=== PATIENT | male | born 1960 | race Caucasian/White ===

== ENCOUNTER 2017-05-26 10:21 | Inpatient (IN) | payer BC ==
[2017-05-26] MEDS ORDERED: SODIUM CHLORIDE 0.9% 500 ML IV STA (11:00)
[2017-05-26] MEDS ORDERED: HEPARIN SODIUM,PORCINE/D5W PMX 25,000 UNIT in DEXTROSE/WATER 1 500ML.BAG IV SCH (11:00)
[2017-05-26] MEDS ORDERED: DILTIAZEM 125 MG in SODIUM CHLORIDE 0.9% 100 ML IV ONE (11:00)
[2017-05-26] MEDS ORDERED: HEPARIN SODIUM,PORCINE 5,000 UNIT/ML 1 ML VIAL IV ONE (11:00)
--- NOTE | 2017-05-26 11:03 | ED ---
General Adult HPI - General Chief complaint: Arrhythmia/Palpitations Stated complaint: heart racing Time Seen by Provider: 05/26/17 10:21 Source: patient, RN notes reviewed Mode of arrival: wheelchair Limitations: no limitations - History of Present Illness Initial comments: This is a 57-year-old male who states he hasn't seen a doctor and docusate does not have any medical history that he knows of. Patient states this morning he woke up felt extremely jittery felt as though his heart was racing and he has had that feeling ever since. Patient arrives in his heart rate is over 150 beats a minute. Patient states she's never had anything similar. Patient denies any illegal drug use. Patient denies any caffeine use today. Patient denies any recent fever chills or cough. Patient denies being short of breath. Patient states there is some heaviness on his chest. Patient denies any radiation of that heaviness however. Patient denies any abdominal pain patient denies nausea vomiting diarrhea. Patient denies taking any prescription medications at this time. Patient denies any syncopal near syncopal or dizziness episodes. - Related Data Home Medications Medication Instructions Recorded Confirmed No Known Home Medications [No 05/26/17 05/26/17 Known Home Medications] Allergies Allergy/AdvReac Type Severity Reaction Status Date / Time No Known Allergies Allergy Verified 05/26/17 11:11 Review of Systems ROS Statement: Those systems with pertinent positive or pertinent negative responses have been documented in the HPI. ROS Other: All systems not noted in ROS Statement are negative. Past Medical History Past Medical History: No Reported History History of Any Multi-Drug Resistant Organisms: None Reported Past Surgical History: Tonsillectomy Past Psychological History: No Psychological Hx Reported Smoking Status: Never smoker Past Alcohol Use History: Daily Past Drug Use History: None Reported General Exam - General Exam Comments Initial Comments: GENERAL: Patient is well-developed and well-nourished. Patient is nontoxic and well- hydrated and is in mild distress. ENT: Neck is soft and supple. No significant lymphadenopathy is noted. Oropharynx is clear. Moist mucous membranes. Neck has full range of motion without eliciting any pain. EYES: The sclera were anicteric and conjunctiva were pink and moist. Extraocular movements were intact and pupils were equal round and reactive to light. Eyelids were unremarkable. PULMONARY: Unlabored respirations. Good breath sounds bilaterally. No audible rales rhonchi or wheezing was noted. CARDIOVASCULAR: Patient is a heart rates about 150 beats a minute ABDOMEN: Soft and nontender with normal bowel sounds. No palpable organomegaly was noted. There is no palpable pulsatile mass. SKIN: Skin is clear with no lesions or rashes and otherwise unremarkable. NEUROLOGIC: Patient is alert and oriented x3. Cranial nerves II through XII are grossly intact. Motor and sensory are also intact. Normal speech, volume and content. Symmetrical smile. MUSCULOSKELETAL: Normal extremities with adequate strength and full range of motion. LYMPHATICS: No significant lymphadenopathy is noted PSYCHIATRIC: Normal psychiatric evaluation. Normal interpersonal interactions appears functionally intact in deals appropriately with others. No signs of depression. No signs of anxiety. Limitations: no limitations Course Vital Signs 05/26/17 05/26/17 05/26/17 10:23 10:33 11:31 Temperature 98.2 F Pulse Rate 108 H 156 H 146 H Respiratory 20 20 18 Rate Blood Pressure 154/96 159/116 150/92 O2 Sat by Pulse 97 96 63 L Oximetry Medical Decision Making - Medical Decision Making EKG shows atrial flutter with a 2-1 block at a rate of 154 bpm QRS is 68 QT interval 306 QTC is 490. No ST segment elevation is noted Chest x-ray shows no acute abnormality. Patient was placed on a Cardizem drip after 5 mg boluses heart rate was slowly coming down throughout his ED stay. I spoke with Dr. Mcdaniel he agreed to admit the patient admitted the patient I placed the patient on heparin I continue the heparin the Cardizem drip on the floor I consult to cardiology. - Lab Data Result diagrams: 05/26/17 10:38 05/26/17 10:38 Lab Results 05/26/17 05/26/17 05/26/17 Range/Units 10:38 10:38 10:38 WBC 11.0 H (3.8-10.6) k/uL RBC 6.01 H (4.30-5.90) m/uL Hgb 18.1 H (13.0-17.5) gm/dL Hct 51.2 (39.0-53.0) % MCV 85.2 (80.0-100.0) fL MCH 30.1 (25.0-35.0) pg MCHC 35.3 (31.0-37.0) g/dL RDW 12.5 (11.5-15.5) % Plt Count 311 (150-450) k/uL Neutrophils % 81 % Lymphocytes % 11 % Monocytes % 5 % Eosinophils % 1 % Basophils % 1 % Neutrophils # 8.9 H (1.3-7.7) k/uL Lymphocytes # 1.3 (1.0-4.8) k/uL Monocytes # 0.5 (0-1.0) k/uL Eosinophils # 0.1 (0-0.7) k/uL Basophils # 0.1 (0-0.2) k/uL PT (9.0-12.0) sec INR (<1.1) APTT (22.0-30.0) sec Sodium 141 (137-145) mmol/L Potassium 4.3 (3.5-5.1) mmol/L Chloride 106 (98-107) mmol/L Carbon Dioxide 22 (22-30) mmol/L Anion Gap 13 mmol/L BUN 13 (9-20) mg/dL Creatinine 0.88 (0.66-1.25) mg/dL Est GFR (MDRD) Af Amer >60 (>60 ml/min/1.73 sqM) Est GFR (MDRD) Non-Af >60 (>60 ml/min/1.73 sqM) Glucose 118 H (74-99) mg/dL Calcium 9.7 (8.4-10.2) mg/dL Magnesium 1.9 (1.6-2.3) mg/dL Total Bilirubin 1.0 (0.2-1.3) mg/dL AST 35 (17-59) U/L ALT 46 (21-72) U/L Alkaline Phosphatase 82 (38-126) U/L Total Creatine Kinase 230 H (55-170) U/L CK-MB (CK-2) 2.6 H* (0.0-2.4) ng/mL CK-MB (CK-2) Rel Index 1.1 Troponin I <0.012 (0.000-0.034) ng/mL Total Protein 7.7 (6.3-8.2) g/dL Albumin 4.7 (3.5-5.0) g/dL TSH 0.837 (0.465-4.680) mIU/L Free T4 1.29 (0.78-2.19) ng/dL Urine Opiates Screen (NotDetected) Ur Oxycodone Screen (NotDetected) Urine Methadone Screen (NotDetected) Ur Propoxyphene Screen (NotDetected) Ur Barbiturates Screen (NotDetected) U Tricyclic Antidepress (NotDetected) Ur Phencyclidine Scrn (NotDetected) Ur Amphetamines Screen (NotDetected) U Methamphetamines Scrn (NotDetected) U Benzodiazepines Scrn (NotDetected) Urine Cocaine Screen (NotDetected) U Marijuana (THC) Screen (NotDetected) 05/26/17 05/26/17 Range/Units 10:38 11:40 WBC (3.8-10.6) k/uL RBC (4.30-5.90) m/uL Hgb (13.0-17.5) gm/dL Hct (39.0-53.0) % MCV (80.0-100.0) fL MCH (25.0-35.0) pg MCHC (31.0-37.0) g/dL RDW (11.5-15.5) % Plt Count (150-450) k/uL Neutrophils % % Lymphocytes % % Monocytes % % Eosinophils % % Basophils % % Neutrophils # (1.3-7.7) k/uL Lymphocytes # (1.0-4.8) k/uL Monocytes # (0-1.0) k/uL Eosinophils # (0-0.7) k/uL Basophils # (0-0.2) k/uL PT 10.7 (9.0-12.0) sec INR 1.1 (<1.1) APTT 24.2 (22.0-30.0) sec Sodium (137-145) mmol/L Potassium (3.5-5.1) mmol/L Chloride (98-107) mmol/L Carbon Dioxide (22-30) mmol/L Anion Gap mmol/L BUN (9-20) mg/dL Creatinine (0.66-1.25) mg/dL Est GFR (MDRD) Af Amer (>60 ml/min/1.73 sqM) Est GFR (MDRD) Non-Af (>60 ml/min/1.73 sqM) Glucose (74-99) mg/dL Calcium (8.4-10.2) mg/dL Magnesium (1.6-2.3) mg/dL Total Bilirubin (0.2-1.3) mg/dL AST (17-59) U/L ALT (21-72) U/L Alkaline Phosphatase (38-126) U/L Total Creatine Kinase (55-170) U/L CK-MB (CK-2) (0.0-2.4) ng/mL CK-MB (CK-2) Rel Index Troponin I (0.000-0.034) ng/mL Total Protein (6.3-8.2) g/dL Albumin (3.5-5.0) g/dL TSH (0.465-4.680) mIU/L Free T4 (0.78-2.19) ng/dL Urine Opiates Screen Not Detected (NotDetected) Ur Oxycodone Screen Not Detected (NotDetected) Urine Methadone Screen Not Detected (NotDetected) Ur Propoxyphene Screen Not Detected (NotDetected) Ur Barbiturates Screen Not Detected (NotDetected) U Tricyclic Antidepress Not Detected (NotDetected) Ur Phencyclidine Scrn Not Detected (NotDetected) Ur Amphetamines Screen Not Detected (NotDetected) U Methamphetamines Scrn Not Detected (NotDetected) U Benzodiazepines Scrn Not Detected (NotDetected) Urine Cocaine Screen Not Detected (NotDetected) U Marijuana (THC) Screen Not Detected (NotDetected) Critical Care Time Critical Care Time: Yes Total Critical Care Time: 35 Disposition Clinical Impression: Atrial fibrillation with rapid ventricular response, New onset a-fib Disposition: ADMITTED IP TO THIS HOSP Referrals: None,Stated [Primary Care Provider] - 1-2 days Time of Disposition: 12:36
[2017-05-26 11:18] LABS: Basophils # (A) 0.1 k/uL (0-0.2); Basophils % (A) 1 %; CH 29.6; CHCM 34.9; Eosinophils # (A) 0.1 k/uL (0-0.7); Eosinophils % (A) 1 %; HCT 51.2 % (39.0-53.0); HGB 18.1 gm/dL (13.0-17.5); Luc # (Auto) 0.14; Luc % (Auto) 1; Lymphocytes # (A) 1.3 k/uL (1.0-4.8); Lymphocytes % (A) 11 %; MCH 30.1 pg (25.0-35.0); MCHC 35.3 g/dL (31.0-37.0); MCV 85.2 fL (80.0-100.0); Mean Platelet Volume 6.7; Monocytes # (A) 0.5 k/uL (0-1.0); Monocytes % (A) 5 %; Neutrophils # (A) 8.9 k/uL (1.3-7.7); Neutrophils % (A) 81 %; RBC 6.01 m/uL (4.30-5.90); RDW 12.5 % (11.5-15.5); WBC (Perox) 11.62
--- NOTE | 2017-05-26 11:26 | XR ---
EXAMINATION TYPE: XR chest 2V DATE OF EXAM: 05/26/2017 COMPARISON: NONE HISTORY: Shortness of breath TECHNIQUE: Frontal and lateral views of the chest are obtained. FINDINGS: Scattered senescent parenchymal changes noted. Hyperinflation compatible with COPD. No evidence for infiltrate. No evidence for atelectasis. Heart size is stable. Mediastinal structures are stable and grossly unremarkable. No evidence for hilar prominence. Degenerative changes dorsal spine. IMPRESSION: 1. No evidence for acute pulmonary disease.
[2017-05-26 11:29] LABS: ALT 46 U/L (21-72); AST 35 U/L (17-59); Alkaline Phosphatase 82 U/L (38-126); Anion Gap 13 mmol/L; Blood Urea Nitrogen 13 mg/dL (9-20); Calcium 9.7 mg/dL (8.4-10.2); Carbon Dioxide 22 mmol/L (22-30); Chloride 106 mmol/L (98-107); Glucose 118 mg/dL (74-99); Magnesium 1.9 mg/dL (1.6-2.3); Non-African American GFR(MDRD) >60 (>60 ml/min/1.73 sqM); Sodium 141 mmol/L (137-145); Total Protein 7.7 g/dL (6.3-8.2)
[2017-05-26 11:44] LABS: Creatine Kinase 230 U/L (55-170)
[2017-05-26 11:56] LABS: INR 1.1 (<1.1); Partial Thromboplastin Time 24.2 sec (22.0-30.0); Prothrombin Time 10.7 sec (9.0-12.0); Troponin I <0.012 ng/mL (0.000-0.034)
[2017-05-26 12:04] LABS: Creatine Kinase MB 2.6 ng/mL (0.0-2.4)
[2017-05-26 12:06] LABS: Potassium 4.3 mmol/L (3.5-5.1)
[2017-05-26] MEDS ORDERED: NITROGLYCERIN SL TABS 0.4 MG TAB SUBLINGUAL PRN (12:37)
[2017-05-26] MEDS ORDERED: PROPAFENONE 150 MG TAB PO STA ×2 (15:35→15:37)
--- NOTE | 2017-05-26 15:45 | P.CRDCN ---
History of Present Illness Reason for Consult (text): Palpitations and rapid heartbeat History of present illness: This patient's medical records reviewed. Woke up this morning with the complaint of palpitations and racing of the heart beat felt very jittery patient denies any shortness of breath chest pain and denies any history of for drinking any A lot of caffeinated drinks has not taken any [id number] medications. And has a borderline hypertension as any history of angina or diabetes. Denies any history of a heart murmur Past Medical History Past Medical History: No Reported History Additional Past Medical History / Comment(s): Pt does not go to doctors very often. Seasonal allergies, sinus infections. History of Any Multi-Drug Resistant Organisms: None Reported Past Surgical History: Tonsillectomy Past Anesthesia/Blood Transfusion Reactions: No Reported Reaction Past Psychological History: No Psychological Hx Reported Additional Psychological History / Comment(s): Pt resides with his spouse and child. He is independent. Smoking Status: Never smoker Past Alcohol Use History: Daily Additional Past Alcohol Use History / Comment(s): Pt states he drinks 1-2 beers nearly daily and 3-4 beers on a Monday Past Drug Use History: None Reported - Past Family History Father Family Medical History: Cancer Additional Family Medical History / Comment(s): Father of lung cancer at the age of 71 yrs. He was a smoker. Mother Family Medical History: Unable to Obtain Additional Family Medical History / Comment(s): Pt states his mother does not discuss her health. She is 77yrs old. Medications and Allergies Home Medications Medication Instructions Recorded Confirmed Type No Known Home Medications [No 05/26/17 05/26/17 History Known Home Medications] Allergies Allergy/AdvReac Type Severity Reaction Status Date / Time No Known Allergies Allergy Verified 05/26/17 11:11 Physical Exam Vitals: Vital Signs Temp Pulse Pulse Resp BP BP Pulse Ox 05/26/17 14:10 96.8 F L 88 16 143/80 97 05/26/17 13:39 99 F 120 H 18 131/89 05/26/17 13:12 119 H 18 120/92 95 05/26/17 11:31 146 H 18 150/92 96 05/26/17 10:33 156 H 20 159/116 96 05/26/17 10:23 98.2 F 108 H 20 154/96 97 Intake and Output 05/26/17 05/26/17 05/26/17 06:59 14:59 22:59 Intake Total 500 Balance 500 Intake: Amount of Fluid Infused ( 500 ml) Other: Weight 111.13 kg Patient Weight 05/27/17 06:59 Weight 111.13 kg Patient is comfortable and in no acute distress. Vital signs are reviewed Head ENT. Negative Neck is supple. There is no increase in jugular venous pressure. Both the carotid pulses are felt that is no bruit. Chest. Symmetrical Heart. First and second heart sounds are normal there is no evidence of murmur Lungs clinically clear to auscultation and percussion. Abdomen is soft liver and spleen are not enlarged. Extremities peripheral pulses since are 2+. EKG is suggestive for atrial flutter with a rapid ventricular response. Chest x-ray is normal Electrolyte T4 and TSH and initial troponins are normal Results 05/26/17 10:38 05/26/17 10:38 Cardiac Enzymes 05/26/17 05/26/17 Range/Units 10:38 10:38 AST 35 (17-59) U/L CK-MB (CK-2) 2.6 H* (0.0-2.4) ng/mL Troponin I <0.012 (0.000-0.034) ng/mL Coagulation 05/26/17 Range/Units 10:38 PT 10.7 (9.0-12.0) sec APTT 24.2 (22.0-30.0) sec CBC 05/26/17 Range/Units 10:38 WBC 11.0 H (3.8-10.6) k/uL RBC 6.01 H (4.30-5.90) m/uL Hgb 18.1 H (13.0-17.5) gm/dL Hct 51.2 (39.0-53.0) % Plt Count 311 (150-450) k/uL Comprehensive Metabolic Panel 05/26/17 Range/Units 10:38 Sodium 141 (137-145) mmol/L Potassium 4.3 (3.5-5.1) mmol/L Chloride 106 (98-107) mmol/L Carbon Dioxide 22 (22-30) mmol/L BUN 13 (9-20) mg/dL Creatinine 0.88 (0.66-1.25) mg/dL Glucose 118 H (74-99) mg/dL Calcium 9.7 (8.4-10.2) mg/dL AST 35 (17-59) U/L ALT 46 (21-72) U/L Alkaline Phosphatase 82 (38-126) U/L Total Protein 7.7 (6.3-8.2) g/dL Albumin 4.7 (3.5-5.0) g/dL Current Medications Generic Name Dose Route Start Last Admin Trade Name Negrito PRN Reason Stop Dose Admin Aspirin 325 mg 05/27/17 09:00 Aspirin PO DAILY KOMAL Diltiazem HCl 125 mg/ Sodium 125 mls @ 5 mls/hr 05/26/17 11:00 05/26/17 11:27 Chloride IV 05/27/17 10:59 5 mg/hr .Q24H ONE 5 mls/hr 5 MG/HR Administration Heparin Sodium/Dextrose 25,000 500 mls @ 20 mls/hr 05/26/17 11:00 05/26/17 11 :23 unit/ IV Solution IV 9 units/kg/hr .Q24H KOMAL 20 mls/hr Protocol Administration 9 UNITS/KG/HR Nitroglycerin 0.4 mg 05/26/17 12:37 Nitrostat SUBLINGUAL Q5M PRN Chest Pain Propafenone HCl 600 mg 05/26/17 15:37 Rythmol PO 05/26/17 15:38 ONCE STA Intake and Output 05/26/17 05/26/17 05/26/17 06:59 14:59 22:59 Intake Total 500 Balance 500 Intake: Amount of Fluid Infused ( 500 ml) Other: Weight 111.13 kg Patient Weight 05/27/17 06:59 Weight 111.13 kg 05/26/17 10:38 05/26/17 10:38 EKG Interpretations (text) Social atrial flutter with a rapid ventricular rate Assessment and Plan Plan: This patient is admitted with the atrial flutter rapid ventricular rate. And then Cardizem drip as well as a heparin we'll do echo and Doppler study. Redo one dose of Rythmol 600 mg by mouth to pharmacologically convert him to the normal sinus rhythm
[2017-05-26 17:09] LABS: Troponin I 0.013 ng/mL (0.000-0.034)
[2017-05-26 17:15] LABS: Creatine Kinase MB 2.6 ng/mL (0.0-2.4)
--- NOTE | 2017-05-26 18:04 | ECHOF ---
Referral Reason:atrial flutter MEASUREMENTS -------- HEIGHT: 182.9 cm WEIGHT: 111.1 kg BP: 143/80 RVIDd: 3.2 cm (< 3.3) IVSd: 1.2 cm (0.6 - 1.1) LVIDd: 2.9 cm (3.9 - 5.3) LVPWd: 1.1 cm (0.6 - 1.1) IVSs: 1.8 cm LVIDs: 2.1 cm LVPWs: 1.5 cm LAESV Index (A-L): 20.53 ml/m Ao Diam: 4.0 cm (2.0 - 3.7) AV Cusp: 1.9 cm (1.5 - 2.6) LA Diam: 2.5 cm (2.7 - 3.8) MV EXCURSION: 21.388 mm (> 18.000) MV EF SLOPE: 189 mm/s (70 - 150) EPSS: 0.6 cm RAP: 5.00 mmHg RVSP: 11.07 mmHg FINDINGS -------- The rhythm appears to be atrial flutter. This was a technically adequate study. There is mild concentric left ventricular hypertrophy. Overall left ventricular systolic function is normal with, an EF between 55 - 60 %. The right ventricle is normal in size and function. Normal LA size by volume 22+/-6 ml/m2. The right atrium is normal in size. Aortic valve is trileaflet and is mildly thickened. There is no evidence of aortic regurgitation. There is no evidence of aortic stenosis. The mitral valve leaflets are mildly thickened. There is trace to mild mitral regurgitation. Trace tricuspid regurgitation present. There is no evidence of pulmonary hypertension. The right ventricular systolic pressure, as measured by Doppler, is 11.07mmHg. The pulmonic valve is normal. The aortic root size is normal. Normal inferior vena cava with normal inspiratory collapse consistent with estimated right atrial pressure of 5 mmHg. The pericardium is normal. There is no pericardial effusion. CONCLUSIONS -------- 1. The rhythm appears to be atrial flutter. 2. There is no evidence of pulmonary hypertension. 3. The right ventricular systolic pressure, as measured by Doppler, is 11.07mmHg. 4. The aortic root size is normal. 5. There is no pericardial effusion. 6. This was a technically adequate study. 7. There is mild concentric left ventricular hypertrophy. 8. Overall left ventricular systolic function is normal with, an EF between 55 - 60 %. 9. Normal LA size by volume 22+/-6 ml/m2. 10. Aortic valve is trileaflet and is mildly thickened. 11. The mitral valve leaflets are mildly thickened. 12. There is trace to mild mitral regurgitation. 13. Trace tricuspid regurgitation present. EARTH MOVER: Cody Price RDCS
[2017-05-26 19:17] VITALS: RESP 18
[2017-05-26] MEDS: APIXABAN 5 MG TAB PO SCH (21:22)
[2017-05-26] MEDS: PROPAFENONE 150 MG TAB PO SCH (23:02)
[2017-05-26 23:59] LABS: Creatine Kinase 160 U/L (55-170)
[2017-05-27 00:12] LABS: Creatine Kinase MB 1.9 ng/mL (0.0-2.4); Troponin I <0.012 ng/mL (0.000-0.034)
[2017-05-27 03:34] LABS: Cholesterol 184 mg/dL (<200); HDL Cholesterol 48 mg/dL (40-60); Triglycerides 113 mg/dL (<150)
[2017-05-27] MEDS ORDERED: ASPIRIN 325 MG TAB PO SCH (09:00)
[2017-05-27 09:06] VITALS: PULSE 95
[2017-05-27] MEDS: PROPAFENONE 150 MG TAB PO SCH (10:29)
[2017-05-27] MEDS: APIXABAN 5 MG TAB PO SCH (10:29)
--- NOTE | 2017-05-27 14:26 | P.PN ---
Subjective Principal diagnosis: Atrial flutter w/RVR This is a pleasant 57-year-old male patient with no significant medical history. Presented to the hospital after what waking up with complaints of palpitations and feeling of racing heartbeat. He was given 600 mg of Rythmol yesterday and has since converted to sinus rhythm. He is feeling well. He is anticoagulated. Echocardiogram with Doppler showed normal LV systolic function. Objective - Vital Signs Vital signs: Vital Signs Temp 97.3 F L 05/27/17 08:10 Pulse 95 05/27/17 08:10 Resp 18 05/27/17 08:10 BP 136/91 05/27/17 08:10 Pulse Ox 94 L 05/27/17 08:10 Intake & Output 05/26/17 05/27/17 05/27/17 18:59 06:59 18:59 Intake Total 500 544 360 Balance 500 544 360 Weight 111.13 kg 107.1 kg Intake: Amount of Fluid Infused ( 500 ml) Intake, IV Titration 184 Amount Heparin Sodium,Porcine/ 184 D5w Pmx 25,000 unit In Dextrose/Water 1 500ml. bag @ 9 UNITS/KG/HR 20 mls/hr IV .Q24H KOMAL Rx#: [id number] Oral 360 360 Other: # Voids 2 1 2 - Exam PHYSICAL EXAMINATION: HEENT: Head is atraumatic, normocephalic. Pupils equal, round. Neck is supple. There is no elevated jugular venous pressure. HEART EXAMINATION: Heart sounds regular, S1 and S2 normal. No murmur or gallop heard. CHEST EXAMINATION: Lungs are clear to auscultation and precussion. No chest wall tenderness is noted on palpation or with deep breathing. ABDOMEN: Soft, nontender. Bowel sounds are heard. No organomegaly noted. EXTREMITIES: 2+ peripheral pulses with no evidence of peripheral edema and no calf tenderness noted. NEUROLOGIC patient is awake, alert and oriented x3. . - Labs CBC & Chem 7: 05/26/17 10:38 05/26/17 10:38 Labs: Abnormal Lab Results - Last 24 Hours (Table) 05/26/17 05/26/17 05/26/17 Range/Units 16:19 16:19 19:52 APTT 30.5 H (22.0-30.0) sec Total Creatine Kinase 198 H (55-170) U/L CK-MB (CK-2) 2.6 H* (0.0-2.4) ng/mL LDL Cholesterol, Calc 113 H (0-99) mg/dL Assessment and Plan Plan: Assessment and plan #1 paroxysmal atrial flutter with rapid ventricular response, currently maintaining sinus rhythm #2 obesity From cardiology's perspective, we will stop Rythmol. We will start the patient on a beta isabel. Patient may be discharged home and follow-up with Dr. VC Alexander in the office. Patient will likely require outpatient testing to rule out sleep apnea. PPA TEACHER note has been reviewed, I agree with a documented findings and plan of care. Patient was seen and examined.
[2017-05-27 15:25] VITALS: BP 159/105; TEMP 97.8
[2017-05-27] MEDS ORDERED: METOPROLOL TARTRATE 25 MG TAB PO SCH (21:00)
== END 2017-05-27 16:44 | disposition home or self-care (01) | DRG 310 ==
LOC: EC 10:21 → 6SEL 12:38
PROVIDERS: ADMIT Internal Medicine; ATTEND Internal Medicine
DX: I48.92 Unspecified atrial flutter (principal); E66.9 Obesity, unspecified; I48.91 Unspecified atrial fibrillation; Z68.32 Body mass index [BMI] 32.0-32.9, adult
CPT/HCPCS: 36415; 71020; 80053; 80061; 80306; 82550; 82553; 83735; 84439; 84443; 84484; 85025; 85610; 85730; 93005; 93306; 96365; 96366; 96368; 96376; 99291

== ENCOUNTER → 2017-06-01 | Outpatient (CLI) | payer BC ==
[2017-06-01 10:57] LABS: Anion Gap 8 mmol/L; Blood Urea Nitrogen 15 mg/dL (9-20); Carbon Dioxide 25 mmol/L (22-30); Chloride 107 mmol/L (98-107); Glucose 99 mg/dL (74-99); Non-African American GFR(MDRD) >60 (>60 ml/min/1.73 sqM); Potassium 4.5 mmol/L (3.5-5.1); Sodium 140 mmol/L (137-145)
[2017-06-01 12:44] LABS: Basophils # (A) 0.1 k/uL (0-0.2); Basophils % (A) 1 %; CHCM 32.3; Eosinophils # (A) 0.2 k/uL (0-0.7); Eosinophils % (A) 3 %; HDW 2.63; HGB 16.8 gm/dL (13.0-17.5); Luc % (Auto) 2; Lymphocytes # (A) 1.6 k/uL (1.0-4.8); Lymphocytes % (A) 18 %; MCH 29.8 pg (25.0-35.0); Mean Platelet Volume 6.5; Monocytes # (A) 0.6 k/uL (0-1.0); Monocytes % (A) 7 %; Neutrophils # (A) 6.3 k/uL (1.3-7.7); Neutrophils % (A) 70 %; RBC 5.64 m/uL (4.30-5.90); RDW 12.6 % (11.5-15.5); WBC (Perox) 9.92
[2017-06-01 12:46] LABS: MCV 90.4 fL (80.0-100.0)
--- NOTE | 2017-06-04 14:43 | DS ---
FINAL DIAGNOSES: 1. Atrial flutter, fibrillation with fast ventricular rate, paroxysmal. 2. Increased WBC, improved. 3. Hyperlipidemia. DISCHARGE DISPOSITION: The patient is being discharged in stable condition with guarded prognosis. HISTORY OF PRESENT ILLNESS: This 57 year old gentleman with past medical history of multiple medical problems admitted with atrial fibrillation. The patient is being monitored closely. The patient was treated with Cardizem. Rythmol was initiated by cardiology. No chest pain. No palpitations. No fever. On exam, alert and oriented times three. Cardiovascular: S1, S2. Abdomen soft. Nontender. Nervous system: No focal deficits. DISCHARGE ADVICE AND MEDICATIONS: 1. Eliquis 5 mg po b.i.d. 2. Rythmol 150 mg q8h. 3. Follow up with primary care physician. 4. Follow up with cardiology. 5. Further recommendations to follow. MTDD
== END | disposition home or self-care (01) ==
LOC: LABWHC1 10:11
PROVIDERS: ATTEND Hospitalist
DX: I48.91 Unspecified atrial fibrillation (principal)
CPT/HCPCS: 36415; 80048; 85025

== ENCOUNTER 2017-07-19 08:25 | Day surgery (SDC) | payer BC ==
[2017-07-17 09:08] VITALS: BMI 34.2
[~2017-07-19 08:25] MED LIST: LACTATED RINGERS 1,000 ML IV SCH
[2017-07-19 08:37] VITALS: RESP 18; TEMP 97.1
[2017-07-19] MEDS ORDERED: LIDOCAINE 1% 20 ML VIAL (10MG/ML) FOR IV START INTRADERMA ONE (08:45)
--- NOTE | 2017-07-19 08:45 | P.GSHP ---
History of Present Illness H&P Date: 07/19/17 CHIEF COMPLAINT: Colon screen HISTORY OF PRESENT ILLNESS: The patient is a 57-year-old male who presents for colon screen. Lower endoscopy was offered for further evaluation and management. PAST MEDICAL HISTORY: Please see list. PAST SURGICAL HISTORY: Please see list. MEDICATIONS: Please see list. ALLERGIES: Please see list. SOCIAL HISTORY: No illicit drug use FAMILY HISTORY: No reports of Crohn disease or ulcerative colitis. REVIEW OF ORGAN SYSTEMS: CONSTITUTIONAL: No reports of fevers or chills. PHYSICAL EXAM: VITAL SIGNS: Stable GENERAL: Well-developed pleasant in no acute distress. HEENT: No scleral icterus. Extraocular movements grossly intact. Moist buccal mucosa. NECK: Supple without lymphadenopathy. CHEST: Unlabored respirations. Equal bilateral excursions. CARDIOVASCULAR: Regular rate and rhythm. Distal 2+ pulses. ABDOMEN: Soft, nontender, nondistended. MUSCULOSKELETAL: No clubbing, cyanosis, or edema. ASSESSMENT: 1. Colon screen. PLAN: 1. Recommend proceeding with a lower endoscopy Past Medical History Past Medical History: Atrial Fibrillation, Hypertension Additional Past Medical History / Comment(s): SEASONAL ALLERGIES. History of Any Multi-Drug Resistant Organisms: None Reported Past Surgical History: Tonsillectomy Additional Past Surgical History / Comment(s): TONSILLS (CHILD) Past Anesthesia/Blood Transfusion Reactions: No Reported Reaction, Motion Sickness Past Psychological History: No Psychological Hx Reported Additional Psychological History / Comment(s): . Smoking Status: Never smoker Past Alcohol Use History: Daily Additional Past Alcohol Use History / Comment(s): Pt states he drinks 1-2 beers nearly daily and maybe 3-4 beers on a Monday. Past Drug Use History: None Reported - Past Family History Father Family Medical History: Cancer Additional Family Medical History / Comment(s): Father of lung cancer at the age of 71 yrs. He was a smoker. Mother Family Medical History: Unable to Obtain Additional Family Medical History / Comment(s): Pt states his mother does not discuss her health. She is 77yrs old. Medications and Allergies Home Medications Medication Instructions Recorded Confirmed Type Cholecalciferol (Vitamin D3) 2,000 unit PO DAILY 07/17/17 07/19/17 History [Vitamin D3] Metoprolol Tartrate [Lopressor] 25 mg PO BID 07/17/17 07/19/17 History Allergies Allergy/AdvReac Type Severity Reaction Status Date / Time No Known Allergies Allergy Verified 07/17/17 09:00 Surgical - Exam Vital Signs Temp Pulse Resp BP Pulse Ox 97.1 F L 68 18 141/89 97 07/19/17 08:36 07/19/17 08:36 07/19/17 08:36 07/19/17 08:36 07/19/17 08:36
[2017-07-19] MEDS ORDERED: PROPOFOL 10 MG/ML 20 ML VIAL IV ONE (08:53)
--- NOTE | 2017-07-19 09:14 | P.PCN ---
Date of Procedure: 07/19/17 Preoperative Diagnosis: Postoperative Diagnosis: Procedure(s) Performed: Implants: Indications for Procedure: Operative Findings: Description of Procedure: PREOPERATIVE DIAGNOSIS: Colonoscopy screening. POSTOPERATIVE DIAGNOSIS: Colonoscopy screening. Villous adenoma, descending colon. External hemorrhoid, grade 4. Sigmoid diverticulosis. OPERATION: Colonoscopy to the ileocecal valve and appendiceal orifice. Colonoscopy with snare polypectomy. SURGEON: Millicent Rangel MD. ANESTHESIA: MAC. INDICATIONS: The patient is a 57-year-old male who presents for his first colonoscopy screening. Benefits and risks were described and informed consent was obtained. DESCRIPTION OF PROCEDURE: The patient had undergone Gatorade, MiraLAX and Dulcolax prep. He had been brought into the operating room and laid in the left lateral decubitus position. After adequate intravenous sedation, the rectum was examined with 2% lidocaine jelly. External hemorrhoids were encountered. The rectal tone was within normal limits. No lesions were palpated in the rectal vault. The prostate was smooth and without abnormality. An Olympus colonoscope was advanced until the ileocecal valve and appendiceal orifice were clearly viewed. The prep was excellent with visualization of the mucosal folds. The scope was removed with visualization of each mucosal fold. Scattered diverticulosis was encountered medium-size, along the descending colon and sigmoid colon. Villous adenoma, 7 mm was snare polypectomy. No evidence of focal colitis was found. Retroflexion of the scope demonstrated grade 1 internal hemorrhoids without active bleeding or inflammation. The colon was desufflated. The patient had tolerated the procedure well. Withdrawal time was over 6 minutes. FINDINGS: Internal hemorrhoids, grade 1 External hemorrhoids, grade 3, anterior lateral cushion. No arteriovenous malformations. Removal of villous adenoma: - Snare polypectomy 50 cm from the anal verge, 7 mm flat villous adenoma polyp. No focal colitis. RECOMMENDATIONS: Recommend repeat colonoscopy 3 years, 2020. Plan - Discharge Summary New Discharge Prescriptions: No Action Apixaban [Eliquis] 5 mg PO BID #60 tab Metoprolol Tartrate [Lopressor] 25 mg PO BID Cholecalciferol (Vitamin D3) [Vitamin D3] 2,000 unit PO DAILY Discharge Medication List Apixaban [Eliquis] 5 mg PO BID #60 tab 05/27/17 [Rx] Cholecalciferol (Vitamin D3) [Vitamin D3] 2,000 unit PO DAILY 07/17/17 [History] Metoprolol Tartrate [Lopressor] 25 mg PO BID 07/17/17 [History] Follow up Appointment(s)/Referral(s): Millicent Rangel MD [STAFF PHYSICIAN] - 08/08/17 Patient Instructions/Handouts: *Sur[facility] - (Anesthesia) Endoscopy Discharge Instructions, Colonoscopy (GEN), Diverticulosis (GEN), Colorectal Polyps (DC), Diverticulosis Diet (GEN) Activity/Diet/Wound Care/Special Instructions: Restart Tyshawn, 07/21/17. Please notify the office of bleeding. Repeat colonoscopy in 3 years, 2019. Discharge Disposition: HOME SELF-CARE
[2017-07-19 09:38] VITALS: BP 115/84; PULSE 74
== END 2017-07-19 09:49 | disposition home or self-care (01) ==
LOC: ORWHC2ENDO 08:25
PROVIDERS: ATTEND Surgery Plastic and Reconstructive Surgery
DX: Z12.11 Encounter for screening for malignant neoplasm of colon (principal); D37.4 Neoplasm of uncertain behavior of colon; K57.30 Diverticulosis of large intestine without perforation or abscess without bleeding; K64.0 First degree hemorrhoids; K64.2 Third degree hemorrhoids; I48.91 Unspecified atrial fibrillation; Z79.01 Long term (current) use of anticoagulants; I10 Essential (primary) hypertension; Z79.899 Other long term (current) drug therapy
CPT/HCPCS: 88305; 45385; J2704

== ENCOUNTER 2020-09-14 23:12 | Emergency (ER) | payer BC ==
[2020-09-14] MEDS ORDERED: ASPIRIN 81 MG PO STA (23:31)
[2020-09-14] MEDS ORDERED: SODIUM CHLORIDE 0.9% 1,000 ML IV STA (23:31)
--- NOTE | 2020-09-14 23:49 | XR ---
EXAMINATION TYPE: XR chest 2V DATE OF EXAM: 09/14/2020 COMPARISON: 05/26/2017 HISTORY: Chest pain TECHNIQUE: FINDINGS: There is no heart failure nor confluent pneumonic infiltrate. There are chest leads. Heart size is normal. Costophrenic angles are clear. Bony thorax is intact. IMPRESSION: No active cardiopulmonary disease. Normal heart. No change.
[2020-09-15 00:10] LABS: Basophils # (A) 0.1 k/uL (0-0.2); Basophils % (A) 1 %; Eosinophils # (A) 0.2 k/uL (0-0.7); Eosinophils % (A) 2 %; HCT 49.1 % (39.0-53.0); HGB 16.5 gm/dL (13.0-17.5); Lymphocytes # (A) 1.4 k/uL (1.0-4.8); Lymphocytes % (A) 14 %; MCH 30.1 pg (25.0-35.0); MCHC 33.6 g/dL (31.0-37.0); MCV 89.5 fL (80.0-100.0); Mean Platelet Volume 6.3; Monocytes # (A) 0.7 k/uL (0-1.0); Monocytes % (A) 7 %; Neutrophils # (A) 7.8 k/uL (1.3-7.7); Neutrophils % (A) 76 %; Platelet Count 225 k/uL (150-450); RBC 5.48 m/uL (4.30-5.90); RDW 12.3 % (11.5-15.5); WBC 10.3 k/uL (3.8-10.6)
[2020-09-15 00:34] LABS: ALT 25 U/L (4-49); AST 29 U/L (17-59); African American GFR (CKD) >90 (>60 ml/min/1.73 sqM); Albumin 4.1 g/dL (3.5-5.0); Alkaline Phosphatase 65 U/L (38-126); Anion Gap 8 mmol/L; Blood Urea Nitrogen 17 mg/dL (9-20); Calcium 9.2 mg/dL (8.4-10.2); Carbon Dioxide 26 mmol/L (22-30); Chloride 105 mmol/L (98-107); Glucose 127 mg/dL (74-99); Magnesium 1.8 mg/dL (1.6-2.3); Non-African American GFR(CKD) >90 (>60 ml/min/1.73 sqM); Potassium 3.5 mmol/L (3.5-5.1); Sodium 139 mmol/L (137-145); Total Bilirubin 0.6 mg/dL (0.2-1.3); Total Protein 6.5 g/dL (6.3-8.2)
[2020-09-15 00:39] LABS: D-Dimer 0.25 mg/L FEU (<0.60); INR 1.1 (<1.2); Partial Thromboplastin Time 23.9 sec (22.0-30.0); Prothrombin Time 10.9 sec (9.0-12.0)
--- NOTE | 2020-09-15 00:45 | ED ---
Arrhythmia/Palpitations HPI - General Chief Complaint: Arrhythmia/Palpitations Stated Complaint: Poss Afib Time Seen by Provider: 09/14/20 23:30 Source: patient Mode of arrival: wheelchair Limitations: no limitations - History of Present Illness Initial Comments: Dae is a 60-year-old male with a history of paroxysmal atrial fibrillation patient presents the ER today for evaluation of palpitations. Patient reports that he's been working 16-17 hours a day every day. Today he didn't have time for lunch or dinner but did take 2 Excedrin in the afternoon. Around 6 PM he developed some palpitations feeling like there is some rapid heart rate and p ressure in his chest. No chest pain or exertional dyspnea. No lightheadedness or diaphoresis. Patient states that he was trying to count his pulse an estimated it was above 120 her quite a period of time which prompted him to come to the ER for evaluation of possible recurrent A. fib. Patient does report that he's been compliant with his daily metoprolol, Elavil Jordan, lisinopril and Lipitor. - Related Data Home Medications Medication Instructions Recorded Confirmed Cholecalciferol (Vitamin D3) 2,000 unit PO DAILY 07/17/17 07/19/17 [Vitamin D3] Metoprolol Tartrate [Lopressor] 25 mg PO BID 07/17/17 07/19/17 Previous Rx's Medication Instructions Recorded Apixaban [Eliquis] 5 mg PO BID #60 tab 05/27/17 Allergies Allergy/AdvReac Type Severity Reaction Status Date / Time No Known Allergies Allergy Verified 09/14/20 23:19 Review of Systems ROS Statement: Those systems with pertinent positive or pertinent negative responses have been documented in the HPI. ROS Other: All systems not noted in ROS Statement are negative. Past Medical History Past Medical History: Atrial Fibrillation, Hypertension Additional Past Medical History / Comment(s): SEASONAL ALLERGIES. History of Any Multi-Drug Resistant Organisms: None Reported Past Surgical History: Tonsillectomy Additional Past Surgical History / Comment(s): TONSILLS (CHILD) Past Anesthesia/Blood Transfusion Reactions: No Reported Reaction, Motion Sickness Past Psychological History: No Psychological Hx Reported Smoking Status: Never smoker Past Alcohol Use History: Daily Past Drug Use History: None Reported - Past Family History Father Family Medical History: Cancer Additional Family Medical History / Comment(s): Father of lung cancer at the age of 71 yrs. He was a smoker. Mother Family Medical History: Unable to Obtain Additional Family Medical History / Comment(s): Pt states his mother does not discuss her health. She is 77yrs old. General Exam - General Exam Comments Initial Comments: Physical Exam GENERAL: Patient is well-developed and well-nourished. Patient is nontoxic and well- hydrated and is in no distress. HENT: Normocephalic, Atraumatic. EYES: PERRL, EOMI PULMONARY: Unlabored respirations. No audible rales rhonchi or wheezing was noted. CARDIOVASCULAR: There is a regular rate and rhythm without any murmurs gallops or rubs. ABDOMEN: Soft and nontender with normal bowel sounds. SKIN: Skin is clear with no lesions or rashes and otherwise unremarkable. : Deferred NEUROLOGIC: Patient is alert and oriented x3. Moving all extremities spontaneously MUSCULOSKELETAL: Normal extremities with adequate strength and full range of motion. No lower extremity swelling or edema. No calf tenderness. PSYCHIATRIC: Normal psychiatric evaluation. Limitations: no limitations Course Vital Signs 09/14/20 09/14/20 09/15/20 23:14 23:20 00:11 Temperature 98.0 F Pulse Rate 118 H 98 Pulse Rate [ 98 [employer] Type [employer] ] Respiratory 18 20 Rate Blood Pressure 160/105 161/98 O2 Sat by Pulse 97 99 Oximetry EKG Findings - EKG Comments: EKG Findings:: EKG was obtained due to tachycardia, EKG obtained at 2327, rate is 105 rhythm is sinus tachycardia, normal axis, normal intervals, OK 170, QRS 68, QTC 459 and there are no acute ST elevations or depressions no evidence of acute ischemia, infarction or arrhythmia. Medical Decision Making - Medical Decision Making Patient was seen and evaluated, history is obtained from the patient Patient had tachycardia throughout the day was concerned he may be in A. fib reported some mild chest pressure earlier in the day when his heart was racing, currently asymptomatic Initial EKG sinus tachycardia Labs were obtained and were unremarkable Lysol modifications were discussed with the patient including decreasing caffeine intake, making sure he is hydrated. Patient has an established follow- up appointment with Dr. House for Monday of this week. - Lab Data Result diagrams: 09/15/20 00:01 09/15/20 00:01 Lab Results 09/15/20 09/15/20 09/15/20 Range/Units 00:01 00:01 00:01 WBC 10.3 (3.8-10.6) k/uL RBC 5.48 (4.30-5.90) m/uL Hgb 16.5 (13.0-17.5) gm/dL Hct 49.1 (39.0-53.0) % MCV 89.5 (80.0-100.0) fL MCH 30.1 (25.0-35.0) pg MCHC 33.6 (31.0-37.0) g/dL RDW 12.3 (11.5-15.5) % Plt Count 225 (150-450) k/uL Neutrophils % 76 % Lymphocytes % 14 % Monocytes % 7 % Eosinophils % 2 % Basophils % 1 % Neutrophils # 7.8 H (1.3-7.7) k/uL Lymphocytes # 1.4 (1.0-4.8) k/uL Monocytes # 0.7 (0-1.0) k/uL Eosinophils # 0.2 (0-0.7) k/uL Basophils # 0.1 (0-0.2) k/uL PT 10.9 (9.0-12.0) sec INR 1.1 (<1.2) APTT 23.9 (22.0-30.0) sec D-Dimer 0.25 (<0.60) mg/L FEU Sodium 139 (137-145) mmol/L Potassium 3.5 (3.5-5.1) mmol/L Chloride 105 (98-107) mmol/L Carbon Dioxide 26 (22-30) mmol/L Anion Gap 8 mmol/L BUN 17 (9-20) mg/dL Creatinine 0.84 (0.66-1.25) mg/dL Est GFR (CKD-EPI)AfAm >90 (>60 ml/min/1.73 sqM) Est GFR (CKD-EPI)NonAf >90 (>60 ml/min/1.73 sqM) Glucose 127 H (74-99) mg/dL Calcium 9.2 (8.4-10.2) mg/dL Magnesium 1.8 (1.6-2.3) mg/dL Total Bilirubin 0.6 (0.2-1.3) mg/dL AST 29 (17-59) U/L ALT 25 (4-49) U/L Alkaline Phosphatase 65 (38-126) U/L Troponin I (0.000-0.034) ng/mL Total Protein 6.5 (6.3-8.2) g/dL Albumin 4.1 (3.5-5.0) g/dL 09/15/20 Range/Units 00:01 WBC (3.8-10.6) k/uL RBC (4.30-5.90) m/uL Hgb (13.0-17.5) gm/dL Hct (39.0-53.0) % MCV (80.0-100.0) fL MCH (25.0-35.0) pg MCHC (31.0-37.0) g/dL RDW (11.5-15.5) % Plt Count (150-450) k/uL Neutrophils % % Lymphocytes % % Monocytes % % Eosinophils % % Basophils % % Neutrophils # (1.3-7.7) k/uL Lymphocytes # (1.0-4.8) k/uL Monocytes # (0-1.0) k/uL Eosinophils # (0-0.7) k/uL Basophils # (0-0.2) k/uL PT (9.0-12.0) sec INR (<1.2) APTT (22.0-30.0) sec D-Dimer (<0.60) mg/L FEU Sodium (137-145) mmol/L Potassium (3.5-5.1) mmol/L Chloride (98-107) mmol/L Carbon Dioxide (22-30) mmol/L Anion Gap mmol/L BUN (9-20) mg/dL Creatinine (0.66-1.25) mg/dL Est GFR (CKD-EPI)AfAm (>60 ml/min/1.73 sqM) Est GFR (CKD-EPI)NonAf (>60 ml/min/1.73 sqM) Glucose (74-99) mg/dL Calcium (8.4-10.2) mg/dL Magnesium (1.6-2.3) mg/dL Total Bilirubin (0.2-1.3) mg/dL AST (17-59) U/L ALT (4-49) U/L Alkaline Phosphatase (38-126) U/L Troponin I <0.012 (0.000-0.034) ng/mL Total Protein (6.3-8.2) g/dL Albumin (3.5-5.0) g/dL Disposition Clinical Impression: Palpitations, Tachycardia Disposition: HOME SELF-CARE Condition: Stable Additional Instructions: Drink more fluids and stay hydrated Limit caffeine intake Follow up with Dr House this week as scheduled Return to the ER for any recurrent symptoms Is patient prescribed a controlled substance at d/c from ED?: No Referrals: Josue Us MD [Primary Care Provider] - 1-2 days
[2020-09-15 01:22] VITALS: BP 153/99; PULSE 94; RESP 16; TEMP 97.8
== END 2020-09-15 01:42 | disposition home or self-care (01) ==
LOC: EC 23:12
DX: R00.2 Palpitations (principal); R00.0 Tachycardia, unspecified; R07.89 Other chest pain; I48.0 Paroxysmal atrial fibrillation; I10 Essential (primary) hypertension; Z79.899 Other long term (current) drug therapy; Z91.048 Other nonmedicinal substance allergy status
CPT/HCPCS: 36415; 71046; 80053; 83735; 83880; 84484; 85025; 85379; 85610; 85730; 93005; 96360; 99285

== ENCOUNTER 2021-06-09 18:00 | Emergency (ER) | payer BC ==
[2021-06-09 18:04] VITALS: BP 169/96; PULSE 106; RESP 18; TEMP 98.2
[2021-06-09] MEDS ORDERED: LIDOCAINE 1% INJ 10MG/ML (20 ML MDV) SQ ONE (18:19)
--- NOTE | 2021-06-09 18:26 | ED ---
Upper Extremity HPI - General Chief Complaint: Extremity Injury, Upper Stated Complaint: finger injury Time Seen by Provider: 06/09/21 18:06 Source: patient Mode of arrival: ambulatory Limitations: no limitations - History of Present Illness Initial Comments: 61-year-old male presents to the emergency department with chief complaint of an injury to his finger. Patient reports occurred about one hour prior to arrival. States he injured it distal and of his left second digit. He reports minimal pain but states there was some bleeding which has since mostly resolved. Patient is on blood thinners. His tetanus is up-to-date. Also reports a subungual hematoma and a laceration. - Related Data Home Medications Medication Instructions Recorded Confirmed Cholecalciferol (Vitamin D3) 2,000 unit PO DAILY 07/17/17 07/19/17 [Vitamin D3] Metoprolol Tartrate [Lopressor] 25 mg PO BID 07/17/17 07/19/17 Previous Rx's Medication Instructions Recorded Apixaban [Eliquis] 5 mg PO BID #60 tab 05/27/17 Allergies Allergy/AdvReac Type Severity Reaction Status Date / Time No Known Allergies Allergy Verified 06/09/21 18:03 Review of Systems ROS Statement: Those systems with pertinent positive or pertinent negative responses have been documented in the HPI. ROS Other: All systems not noted in ROS Statement are negative. Past Medical History Past Medical History: Atrial Fibrillation, Hypertension Additional Past Medical History / Comment(s): SEASONAL ALLERGIES. History of Any Multi-Drug Resistant Organisms: None Reported Past Surgical History: Tonsillectomy Additional Past Surgical History / Comment(s): TONSILLS (CHILD) Past Anesthesia/Blood Transfusion Reactions: No Reported Reaction, Motion Sickness Past Psychological History: No Psychological Hx Reported Smoking Status: Never smoker Past Alcohol Use History: Daily Past Drug Use History: None Reported - Past Family History Father Family Medical History: Cancer Additional Family Medical History / Comment(s): Father of lung cancer at the age of 71 yrs. He was a smoker. Mother Family Medical History: Unable to Obtain Additional Family Medical History / Comment(s): Pt states his mother does not discuss her health. She is 77yrs old. General Exam Limitations: no limitations General appearance: alert, in no apparent distress Head exam: Present: atraumatic, normocephalic, normal inspection Eye exam: Present: normal appearance, PERRL, EOMI Pupils: Present: normal accommodation ENT exam: Present: normal exam, normal oropharynx, mucous membranes moist Neck exam: Present: normal inspection, full ROM. Absent: tenderness, lymphadenopathy Respiratory exam: Present: normal lung sounds bilaterally. Absent: respiratory distress, wheezes, rales, rhonchi, stridor Cardiovascular Exam: Present: regular rate, normal rhythm, normal heart sounds. Absent: systolic murmur Extremities exam: Present: full ROM, tenderness (Minimal tenderness to touch), normal capillary refill. Absent: normal inspection (Injury to the distal of the left second digit. Subinguinal hematoma. Laceration on the dorsal aspect of the finger), pedal edema, joint swelling, calf tenderness Back exam: Present: normal inspection, full ROM. Absent: tenderness Neurological exam: Present: alert, oriented X3 Psychiatric exam: Present: normal affect, normal mood Skin exam: Present: warm, dry, intact, normal color Course Vital Signs 06/09/21 18:01 Temperature 98.2 F Pulse Rate 106 H Respiratory 18 Rate Blood Pressure 169/96 O2 Sat by Pulse 98 Oximetry Procedures - Laceration Laceration #1 Consent Obtained: verbal consent Indication: laceration Site: hand Size (cm): 3 Description: irregular, clean Depth: simple, single layer Sedation/Analgesia: none Anesthetic Used: lidocaine 1% Anesthesia Technique: nerve block Amount (mls): 5 Pre-repair: irrigated extensively, deep structures intact Type of Sutures: nylon Size of Sutures: 4-0 Number of Sutures: 5 Technique: simple, interrupted Patient Tolerated Procedure: well, no complications Medical Decision Making - Medical Decision Making 61-year-old male presents to the emergency department with chief complaint of an injury to his finger. Lacerations several thoroughly irrigated. It was able to close the laceration and suture the nail to the nail bed with 5 sutures. Patient her procedure well. A hole was inserted in the middle of the nail in order to release a subinguinal hematoma. I will prescribe the patient Keflex for the next few days. His tetanus is up-to-date. X-ray shows no fracture or dislocations. Patient advised to return for suture removal. Case discussed physician. No laceration to the nailbed. Disposition Clinical Impression: Laceration, Finger injury Disposition: HOME SELF-CARE Condition: Stable Instructions (If sedation given, give patient instructions): Care For Your Stitches (DC), Laceration (DC) Additional Instructions: Please return to the emergency room in 8-10 days to have sutures removed. Please watch for any signs of infection which may include increased pain, swelling, redness, fever or chills. Please return to emergency room for any signs of infection do occur. Please use clean soap and water over the area to prevent scabbing over your stitches. Please leave wound covered for the first 24-48 hours and then leave wound open to air. Please return to the emergency room for any other concerns. Is patient prescribed a controlled substance at d/c from ED?: No Referrals: Josue Us MD [Primary Care Provider] - 1-2 days Time of Disposition: 20:09
--- NOTE | 2021-06-09 19:43 | XR ---
EXAMINATION TYPE: XR finger LT DATE OF EXAM: 06/09/2021 COMPARISON: NONE HISTORY: Possible tuft fracture TECHNIQUE: AP, lateral, and oblique coned-down views of the finger of concern of the left hand were p erformed. FINDINGS: There is no acute fracture or dislocation. There is cortical irregularity of the head of th e proximal phalanx which appears well-corticated and with adjacent well-corticated ossific densities. There is degenerative spurring of the PIP joint dorsally. Normal osseous mineralization. No signific ant soft tissue swelling. IMPRESSION: 1. No evidence of acute tuft fracture. 2. Cortical irregularity of the head of the proximal phalanx appears nonacute. Correlation can be per formed with point tenderness.
[2021-06-09] MEDS ORDERED: BACITRACIN OINT 1 EACH PACKET TOPICAL STA (19:59)
== END 2021-06-09 20:16 | disposition home or self-care (01) ==
LOC: EC 18:00
DX: S61.211A Laceration without foreign body of left index finger without damage to nail, initial encounter (principal); I48.91 Unspecified atrial fibrillation; I10 Essential (primary) hypertension; X58.XXXA Exposure to other specified factors, initial encounter
CPT/HCPCS: 73140; 99283; 96372; J2001

== ENCOUNTER 2024-10-30 11:39 | Emergency (ER) | payer BC ==
[2024-10-30 11:46] VITALS: RESP 18
[2024-10-30] MEDS: amLODIPine 5 MG TAB PO STA (12:50)
--- NOTE | 2024-10-30 13:00 | ED ---
General Adult HPI - General Chief complaint: Recheck/Abnormal Lab/Rx Stated complaint: hypertension Time Seen by Provider: 10/30/24 12:15 Source: patient, EMS, RN notes reviewed, old records reviewed Mode of arrival: EMS Limitations: no limitations - History of Present Illness Initial comments: Patient is 64-year-old male who presents emergency department complaining of hypotensive episode. Patient was recently admitted to [facility] to the ICU for possible arrest or syncopal episode with altered mentation. Had a short stay and was intubated. Was discharged home last week. Today had a follow-up appointment with his PCP and found that his blood pressure was slightly higher than normal. Typically runs 150/90. He was over 200 at the PCPs office and presents for further evaluation. Blood pressure meds were changed and he was not been taking his old Norvasc and valsartan but has only been taking the newly prescribed metoprolol. Thinks this may be likely the source of his issues. Denies any symptoms. Denies chest pain or shortness of breath. Denies headache or lightheadedness. Denies abdominal pain. Presents for further evaluation at this time. History of A-fib and is on Eliquis. - Related Data Home Medications Medication Instructions Recorded Confirmed Cholecalciferol (Vitamin D3) 2,000 unit PO DAILY 07/17/17 07/19/17 [Vitamin D3] Metoprolol Tartrate [Lopressor] 25 mg PO BID 07/17/17 07/19/17 Previous Rx's Medication Instructions Recorded Apixaban [Eliquis] 5 mg PO BID #60 tab 05/27/17 amLODIPine [Norvasc] 5 mg PO DAILY 14 Days #14 tab 10/30/24 Allergies Allergy/AdvReac Type Severity Reaction Status Date / Time No Known Allergies Allergy Verified 10/30/24 11:46 Review of Systems ROS Statement: Those systems with pertinent positive or pertinent negative responses have been documented in the HPI. Review of Systems: CONST: Denies fever EYES: Denies blurry vision ENT: Denies nasal congestion C/V: Denies Chest pain RESP: Denies shortness of breath GI: Denies abdominal pain : Denies dysuria SKIN: Denies rash. MSK: Denies joint pain. NEURO: Denies headache ROS Other: All systems not noted in ROS Statement are negative. Past Medical History Past Medical History: Atrial Fibrillation, Hypertension Additional Past Medical History / Comment(s): SEASONAL ALLERGIES. History of Any Multi-Drug Resistant Organisms: None Reported Past Surgical History: Tonsillectomy Additional Past Surgical History / Comment(s): TONSILLS (CHILD) Past Anesthesia/Blood Transfusion Reactions: No Reported Reaction, Motion Sickne ss Past Psychological History: No Psychological Hx Reported Smoking Status: Never smoker Past Alcohol Use History: Daily Past Drug Use History: None Reported - Past Family History Father Family Medical History: Cancer Additional Family Medical History / Comment(s): Father of lung cancer at the age of 71 yrs. He was a smoker. Mother Family Medical History: Unable to Obtain Additional Family Medical History / Comment(s): Pt states his mother does not discuss her health. She is 77yrs old. General Exam - General Exam Comments Initial Comments: General: Appears in no acute distress. HEAD: Normal with no signs of head trauma. EYES: PERRLA, EOMI, conjunctiva normal, no discharge. ENT: Hearing grossly intact, normal oropharynx. RESPIRATORY: Clear breath sounds bilaterally. No wheezes, rales, or rhonchi. C/V: Regular rate and rhythm. S1 and S2 auscultated, no edema, peripheral pulses 2+ and intact throughout ABD: Abd is soft, nontender, nondistended EXT: Normal range of motion, no obvious deformity SKIN: No rashes or lesions observed on exposed skin. NEURO: Alert and oriented x 4. No focal deficits Limitations: no limitations Course Vital Signs 10/30/24 10/30/24 10/30/24 11:41 12:47 13:54 Temperature 98.4 F Pulse Rate 72 69 71 Respiratory 18 18 18 Rate Blood Pressure 181/96 168/99 175/101 O2 Sat by Pulse 97 95 96 Oximetry Medical Decision Making - Medical Decision Making Was pt. sent in by a medical professional or institution (, PA, CASH APPLICATIONS REPRESENTATIVE, urgent care, hospital, or senior care...) When possible be specific @ -Sent by PCP for evaluation of asymptomatic hypertension Did you speak to anyone other than the patient for history (EMS, parent, family, police, friend...)? What history was obtained from this source @ -No Did you review nursing and triage notes (agree or disagree)? Why? @ -I reviewed and agree with nursing and triage notes Were old charts reviewed (outside hosp., previous admission, EMS record, old EKG, old radiological studies, urgent care reports/EKG's, senior care records)? Report findings @ -No old charts were reviewed Differential Diagnosis (chest pain, altered mental status, abdominal pain women, abdominal pain men, vaginal bleeding, weakness, fever, dyspnea, syncope, headache, dizziness, GI bleed, back pain, seizure, CVA, palpatations, mental health, musculoskeletal)? @ -Hypertension, electrolyte abnormality, DAWOOD. This list is not all inclusive. EKG interpreted by me (3pts min.). @ -As above X-rays interpreted by me (1pt min.). @ -None done CT interpreted by me (1pt min.). @ -None done U/S interpreted by me (1pt. min.). @ -None done What testing was considered but not performed or refused? (CT, X-rays, U/S, labs)? Why? @ -None What meds were considered but not given or refused? Why? @ -None Did you discuss the management of the patient with other professionals (professionals i.e. , PA, CASH APPLICATIONS REPRESENTATIVE, lab, RT, psych nurse, social services designee, mechanical process engineer, teacher, environmental compliance officer, foster care case manager)? Give summary @ -No Was smoking cessation discussed for >3mins.? @ -No Was critical care preformed (if so, how long)? @ -No Were there social determinants of health that impacted care today? How? (Homelessness, low income, unemployed, alcoholism, drug addiction, transportation, low edu. Level, literacy, decrease access to med. care, shelter, rehab)? @ -No Was there de-escalation of care discussed even if they declined (Discuss DNR or withdrawal of care, Hospice)? DNR status @ -No What co-morbidities impacted this encounter? (DM, HTN, Smoking, COPD, CAD, Cancer, CVA, ARF, Chemo, Hep., AIDS, mental health diagnosis, sleep apnea, morbid obesity)? @ -Hypertension, A-fib Was patient admitted / discharged? Hospital course, mention meds given and route, prescriptions, significant lab abnormalities, going to OR and other pertinent info. @ -Patient presents emergency department with asymptomatic hypertension. Has a history of hypertension. Recently had his medications changed after recent hospital stay at [facility]. Presents for further evaluation at this time. Blood pressure upon arrival was 180/90. States he typically runs 150s over 90s. Has no symptoms. We will obtain basic labs, screening EKG. Patient recently had medication swapped and patient will be given a small dose of his old Norvasc in addition to the metoprolol that he took this morning. Denies missing any meds. He was in agreement this plan. EKG shows no signs of acute ischemia. Patient's laboratory studies revealed no obvious acute process. On reevaluation, blood pressure is mildly improved with systolics in the 160s to 170s instead of over 180s-200s. He remains asymptomatic. I discussed the results with the patient. Joint decision made to discharge the patient home with a new prescription for Norvasc 5 mg. Discussed monitoring blood pressures twice a day at home and following up with PCP in the next 1 to 3 days. Strict return precautions discussed. He was in agreement this plan. I will provide the patient with a prescription for Norvasc. I instructed the patient to follow up with their PCP in the next 1-3 days.. I explained that the patient should return to the emergency department if they experience any worsening symptoms. Strict return precautions were discussed with the patient. The patient expressed understanding of these instructions. I answered all questions that the patient had. The patient was discharged home in good condition with their prescriptions and follow up information. Undiagnosed new problem with uncertain prognosis? @ -No Drug Therapy requiring intensive monitoring for toxicity (Heparin, Nitro, Insulin, Cardizem)? @ -No Were any procedures done? @ -No Diagnosis/symptom? @ -Asymptomatic hypertension Acute, or Chronic, or Acute on Chronic? @ -Acute Uncomplicated (without systemic symptoms) or Complicated (systemic symptoms)? @ -Uncomplicated Side effects of treatment? @ -None Exacerbation, Progression, or Severe Exacerbation] @ -No Poses a threat to life or bodily function? @ -Unlikely at this time - Lab Data Result diagrams: 10/30/24 12:37 10/30/24 12:37 Lab Results 10/30/24 10/30/24 Range/Units 12:37 12:37 WBC 9.4 (3.8-10.6) k/uL RBC 5.36 (4.30-5.90) m/uL Hgb 15.6 (13.0-17.5) gm/dL Hct 47.8 (39.0-53.0) % MCV 89.1 (80.0-100.0) fL MCH 29.2 (25.0-35.0) pg MCHC 32.7 (31.0-37.0) g/dL RDW 12.7 (11.5-15.5) % Plt Count 256 (150-450) k/uL MPV 7.9 Neutrophils % 70 % Lymphocytes % 17 % Monocytes % 8 % Eosinophils % 3 % Basophils % 1 % Neutrophils # 6.6 (1.3-7.7) k/uL Lymphocytes # 1.6 (1.0-4.8) k/uL Monocytes # 0.8 (0-1.0) k/uL Eosinophils # 0.3 (0-0.7) k/uL Basophils # 0.1 (0-0.2) k/uL Sodium 140 (137-145) mmol/L Potassium 3.9 (3.5-5.1) mmol/L Chloride 107 (98-107) mmol/L Carbon Dioxide 28 (22-30) mmol/L Anion Gap 5 mmol/L BUN 26 H (9-20) mg/dL Creatinine 0.72 (0.66-1.25) mg/dL Est GFR (CKD-EPI)AfAm >90 (>60 ml/min/1.73 sqM) Est GFR (CKD-EPI)NonAf >90 (>60 ml/min/1.73 sqM) Glucose 89 (74-99) mg/dL Calcium 9.0 (8.4-10.2) mg/dL Total Bilirubin 0.9 (0.2-1.3) mg/dL AST 38 (17-59) U/L ALT 58 H (4-49) U/L Alkaline Phosphatase 69 (38-126) U/L Total Protein 6.6 (6.3-8.2) g/dL Albumin 4.0 (3.5-5.0) g/dL - EKG Data -: EKG Interpreted by Me EKG Comments: 12-lead Electrocardiogram Interpretation Note EKG was reviewed and interpreted by myself. 12-lead ECG performed at 1149 is interpreted by me as revealing normal sinus rhythm at a rate of 63 beats per minute. [place] is normal. RI interval is 174 ms, QRS duration 79 ms, QTc is 395 ms.. There were no ST or T wave abnormalities to suggest myocardial ischemia or injury. R wave progression across the precordium was satisfactory. By my interpretation this EKG is non-diagnostic for acute ischemia. Disposition Clinical Impression: Asymptomatic hypertension Disposition: HOME SELF-CARE Condition: Good Additional Instructions: Follow-up with your PCP in the next 1 to 3 days. Monitor your blood pressure at home and keeping a log to take it once in the morning once in the evening. In addition to the home metoprolol, use Norvasc 5 mg daily at home. Return to the emergency department if worsening symptoms or if uncontrolled blood pressure particularly if systolics are over 200 or diastolics are over 120. Continue follow-up with your outbound sales representative and neurologist. Prescriptions: amLODIPine [Norvasc] 5 mg PO DAILY 14 Days #14 tab Is patient prescribed a controlled substance at d/c from ED?: No Referrals: Josue Us MD [Primary Care Provider] - 1-2 days Time of Disposition: 14:00
[2024-10-30 13:03] LABS: Basophils # (A) 0.1 k/uL (0-0.2); Basophils % (A) 1 %; Eosinophils # (A) 0.3 k/uL (0-0.7); Eosinophils % (A) 3 %; HCT 47.8 % (39.0-53.0); HGB 15.6 gm/dL (13.0-17.5); Lymphocytes # (A) 1.6 k/uL (1.0-4.8); Lymphocytes % (A) 17 %; MCH 29.2 pg (25.0-35.0); MCHC 32.7 g/dL (31.0-37.0); MCV 89.1 fL (80.0-100.0); Mean Platelet Volume 7.9; Monocytes # (A) 0.8 k/uL (0-1.0); Monocytes % (A) 8 %; Neutrophils # (A) 6.6 k/uL (1.3-7.7); Neutrophils % (A) 70 %; Platelet Count 256 k/uL (150-450); RBC 5.36 m/uL (4.30-5.90); RDW 12.7 % (11.5-15.5); WBC 9.4 k/uL (3.8-10.6)
[2024-10-30 13:04] LABS: ALT 58 U/L (4-49); AST 38 U/L (17-59); African American GFR (CKD) >90 (>60 ml/min/1.73 sqM); Alkaline Phosphatase 69 U/L (38-126); Anion Gap 5 mmol/L; Blood Urea Nitrogen 26 mg/dL (9-20); Carbon Dioxide 28 mmol/L (22-30); Chloride 107 mmol/L (98-107); Glucose 89 mg/dL (74-99); Non-African American GFR(CKD) >90 (>60 ml/min/1.73 sqM); Potassium 3.9 mmol/L (3.5-5.1); Sodium 140 mmol/L (137-145); Total Bilirubin 0.9 mg/dL (0.2-1.3); Total Protein 6.6 g/dL (6.3-8.2)
[2024-10-30 14:35] VITALS: BP 170/98; PULSE 74; TEMP 98.2
== END 2024-10-30 14:35 | disposition home or self-care (01) ==
LOC: EC 11:39
DX: I10 Essential (primary) hypertension (principal); I48.91 Unspecified atrial fibrillation; Z79.899 Other long term (current) drug therapy
CPT/HCPCS: 36415; 80053; 85025; 93005; 99284

== ENCOUNTER 2025-01-23 09:44 | Day surgery (SDC) | payer BC ==
[2025-01-20 16:13] VITALS: BMI 34.8
[~2025-01-23 09:44] MED LIST changes: -LACTATED RINGERS 1,000 ML IV SCH; +SODIUM CHLORIDE 0.9% 1,000 ML IV SCH
[2025-01-23 12:50] VITALS: RESP 16; TEMP 97.9
[2025-01-23] MEDS: LIDOCAINE 1% INJ 10MG/ML (20 ML MDV) SQ ONE (12:50)
[2025-01-23 18:19] VITALS: BP 156/70; PULSE 67
--- NOTE | 2025-01-24 16:43 | P.PCN ---
Description of Procedure: Procedure: Insertion of Linq loop recorder Indication: Syncope CONSENT:I have discussed the risks, benefits and alternative therapies for the above-mentioned procedure. The patient has indicated understanding and acceptance of the risks and procedures discussed. PROCEDURE: Patient was brought to the catheterization lab in a fasting state. Patient was prepped and draped in the usual fashion. 1% lidocaine was used to anesthetize the area of the left third intercostal space. Using the loop recorder incision device, a small 0.5 cm incision was made in the left 3rd intercostal space. Next the Linq loop recorder was deployed in the 3rd intercostal space subcutaneously using the insertion tool. Thresholds were checked and were excellent at 0.2V. Next the incision was closed using Dermabond. Steristrips were placed over the incision and the procedure was completed. The patient tolerated the procedure well. The patient was transported to the post cath holding area in stable condition. Linq loop recorder serial number: [id number]
== END 2025-01-23 13:47 | disposition home or self-care (01) ==
LOC: CATHEP 09:44
PROVIDERS: ATTEND Internal Medicine
DX: I48.3 Typical atrial flutter (principal); I10 Essential (primary) hypertension; E78.5 Hyperlipidemia, unspecified; Z79.01 Long term (current) use of anticoagulants; Z79.899 Other long term (current) drug therapy
CPT/HCPCS: 33285; J0690; J2003

== ENCOUNTER → 2025-02-24 | Day surgery (SDC) | payer BC ==
[2025-02-21 08:54] VITALS: BMI 34.4
[~2025-02-24] MED LIST changes: +ALPRAZolam 0.25 MG TAB PO PRN; +ALPRAZolam 0.5 MG TAB PO PRN; +ASPIRIN 325 MG TAB PO STA; +ATORVASTATIN 40 MG TAB PO SCH; +ATORVASTATIN 80 MG TAB PO STA; +METOPROLOL TARTRATE 25 MG TAB PO SCH; +NITROGLYCERIN SL TABS 0.4 MG TAB SUBLINGUAL PRN; +RX INFO: IV CONTRAST WAS GIVEN 1 EACH MISC MISCELLANE PRN; +VALSARTAN 160 MG TAB PO SCH; +amLODIPine 5 MG TAB PO SCH
[2025-02-24] MEDS: SODIUM CHLORIDE 0.9% 1,000 ML in EMPTY BAG 1 BAG IV SCH (06:40)
[2025-02-24] MEDS: IV FLUID CONTINUATION 1,000 ML IV ONE (06:40)
[2025-02-24] MEDS: IV FLUID CONTINUATION 950 ML IV ONE (07:23)
[2025-02-24 07:24] VITALS: TEMP 98.1
[2025-02-24] MEDS: fentaNYL (PF) 50 MCG/1 ML VIAL IVP ONE (07:35)
[2025-02-24] MEDS: LIDOCAINE 1% INJ 10MG/ML (20 ML MDV) SQ ONE (07:37)
[2025-02-24] MEDS: VERAPAMIL SYRINGE (5 MG/10 ML) INTRAARTER ONE (07:38)
[2025-02-24] MEDS: HEPARIN SODIUM,PORCINE (1 ML) 2,500 UNIT in SODIUM CHLORIDE 0.9% 250 ML IRRIGATION PRN (07:43)
[2025-02-24] MEDS: HEPARIN SODIUM,PORCINE 10,000 UNIT in SODIUM CHLORIDE 0.9% 1,000 ML IRRIGATION PRN (07:43)
[2025-02-24] MEDS: HEPARIN SODIUM 1,000 UN/ML (10ML VL) IV ONE (07:43)
[2025-02-24] MEDS: IOPAMIDOL-370 100ML BTL INJ ONE (07:49)
--- NOTE | 2025-02-24 08:06 | P.CARDCATH ---
Date of Procedure: 02/24/25 Description of Procedure: Cardiac Catheterization: The patient is a 65-year-old male with a history of hypertension, hyperlipidemia who had an episode of syncope and had an abnormal MPI with evidence of nonsustained VT during his exercise testing. Recommendations were made regarding cardiac catheterization, the risks and the complications were discussed with the patient who is in full understanding and agreement. Procedure Description: Patient was brought to laboratory technology teacher in fasting semi-sedated state after receiving Fentanyl and Benadryl achieiving moderate conscious sedated state. Using Xylocaine Anesthesia and modified Seldinger technique, a 6-Belgian sheath was introduced in the right radial artery . Subsequently, selective coronary angiography was performed using a 5-Belgian 3.5 bend Randi catheter. Multiple views of the coronary artery including hemiaxial views were obtained. The 5 Belgian pigtail catheter was used to cross the aortic valve and LVEDP was calculated. Following that, catheter and sheath were removed. Hemostasis was obtained with deployment of vascular band . There was no immediate complication. Patient was returned to room in stable condition. Of note, the patient received a total of 5000 units of intravenous heparin as well as intra-arterial verapamil. Findings: Left main: This is a short size vessel, bifurcating into LAD and left circumflex, left main has no obstructive disease LAD: This is a large size vessel, giving rise to moderately sized diagonal branch in the midsegment. The left anterior descending artery has no evidence of obstructive disease Left circumflex: This is a large nondominant vessel, giving rise to 4 obtuse marginal branch of large caliber, the left circumflex after the takeoff of the first obtuse marginal branch has an eccentric 20 to 30% plaque, the rest of the vessel has no high-grade stenosis RCA: This is a large dominant vessel, bifurcating distally to PDA and PLV, the right coronary artery and its branches have no obstructive disease Left Ventriculogram: Not performed Hemodynamics: There was no gradient across aortic valve, LVEDP was 20-22 mmHg Conclusion: 1. Mild disease in the proximal left circumflex 2. Right dominance 3. Elevated LVEDP Recommendations: I have recommended to continue medical therapy with the aggressive coronary risks modification, there is no evidence of significant obstructive disease. The findings and the recommendations were discussed with the patient and the family and they were in full understanding and agreement. Duration of sedation is 17 minutes.
[2025-02-24 18:25] VITALS: BP 123/74; PULSE 63; RESP 14
== END | disposition home or self-care (01) ==
LOC: CATHCVL 05:47
PROVIDERS: ATTEND Internal Medicine Interventional Cardiology
DX: I25.10 Atherosclerotic heart disease of native coronary artery without angina pectoris (principal); I48.3 Typical atrial flutter; I10 Essential (primary) hypertension; I47.29 Other ventricular tachycardia; E78.2 Mixed hyperlipidemia; G40.909 Epilepsy, unspecified, not intractable, without status epilepticus; Z79.01 Long term (current) use of anticoagulants; Z79.899 Other long term (current) drug therapy; Z87.891 Personal history of nicotine dependence; Z95.818 Presence of other cardiac implants and grafts
CPT/HCPCS: 93458; C1894; C1769; J1644 ×3; J2003; Q9967; J3010